=== PATIENT | female | born 1965 | race Caucasian/White ===

== ENCOUNTER 2025-01-28 19:12 | Emergency (ER) | payer OTHER, SELFPAY ==
[2025-01-28 19:15] VITALS: BP 155/69
[2025-01-28 22:16] VITALS: BP 153/54
[2025-01-28 22:17] VITALS: BMI 28.3
[2025-01-28 23:00] VITALS: BP 129/72
--- NOTE | 2025-01-28 23:50 | ED.GENMED ---
History of Present Illness
General
Chief Complaint: Musculo-Skeletal Complaint
Source: patient
Time Seen by Provider: 01/28/25 23:35
History of Present Illness
History of Present Illness:
59-year-old female was walking her dog, stepped on uneven terrain, and fell backwards onto her bottom. She did not hit her head. When she is try to get up she noticed that she had pain in the left wrist. She denies pain elsewhere. She denies
headache, head strike, loss of consciousness, new neck pain, numbness, tingling, focal weakness, chest pain, shortness of breath, abdominal pain, nausea, vomiting, or other complaints.
Past History
Past History
ED Past Medical History: GERD and IDDM
ED Past Surgical History:
Social History
Tobacco: Non-smoker
Alcohol: Occasional
Drug: None
Personal: Single
Living: with family
Employment: Employed
Family History
Family History: Diabetes
Phy Exam
Physical Exam
Physical Exam:
GENERAL: Alert , in no apparent distress
EYE: pupils equal and reactive
NECK: Supple, no significant adenopathy, no midline tenderness.
ENT: o/p clr, mmm, no signs of head or facial injury.
CARDIAC: Regular rate and rhythm .
LUNGS: Clear breath sounds bilaterally, no acute respiratory distress, no wheezes/rales/rhonchi
ABDOMEN: Soft, without focal tenderness, no r/g, no cvat
NEUROLOGICAL: Alert and oriented, no focal neuro deficits
SKIN: Warm and dry, skin intact.
MUSCULOSKELETAL: Mild tenderness to palpation and edema noted dorsal aspect of left wrist, 2+ radial ulnar pulses, no proximal forearm/elbow/humerus pain. Range of motion limited at left wrist due to pain, otherwise preserved range of motion of
extremities throughout, well perfused.
PSYCH: Normal and appropriate interaction.
Course
Orders/Labs/Results
Orders:
Orders
01/28/25 19:13
Wrist, Left 3 Views CR [CR Wrist - Left Min 3 Views] Urgent
Comment:
Reason For Exam: injury
01/28/25 23:55
Acetaminophen with Codeine [Tylenol #3] 1 tablet PO NOW STA
Ibuprofen [Motrin] 400 mg PO NOW STA
Vital Signs
Initial and Last Documented VS:
Initial Vital Signs
Temp Pulse Resp BP Pulse Ox
98.2 F 96 16 155/69 99
01/28/25 19:15 01/28/25 19:15 01/28/25 19:15 01/28/25 19:15 01/28/25 19:15
Last Documented Vital Signs
Temp Pulse Resp BP Pulse Ox
98.2 F 96 16 129/72 99
01/28/25 19:15 01/28/25 19:15 01/28/25 19:15 01/28/25 23:00 01/28/25 23:45
*Critical Care Note
Total Time (30-74mins, 75-104mins- exclusive of procedures): Not Applicable
Update Note
Update Note:
Patient presents to the Emergency Department with
Number and Complexity of Problems Addressed at the Encounter
� Chronic conditions affecting care:
� Acute Exacerbation and/or Progression of Chronic Illness:
� Differential Diagnosis includes:
Amount and/or Complexity of Data to be Reviewed and Analyzed
� I performed an independent evaluation of and my interpretation is:
EKG:
CT:
Xrays:Comminuted mildly displaced intra-articular left radial metaphyseal fracture.
Mild displaced acute fracture of the ulnar solid process.
Laboratory Studies:
Other:
� Review of other/old records reveals:
� Clinical information was obtained by an independent historian: Son who is bedside
� Prescriptions/Medications Considered but not given:
� Further testing considered but not performed:
Risk of Complications and/or Morbidity or Mortality of Patient Management
� Social determinants of health affecting care:
� Discussion with other providers (PCP, Hospitalists, Consultants, etc): Patient will be provided with pain control and precautions regarding narcotic use including constipation, confusion, nausea vomiting, etc. She will be
placed in a sugar-tong splint and instructions for close Ortho follow-up.
� Escalation of care including admission/observation vs risk of discharge considered:
ED Attending Note
-
Portions of this chart may have been created with voice recognition software.� Occasional wrong word or��sound alike� substitutions may have occurred due to the inherent limitations of voice recognition software.
Discharge Plan
Departure
Patient Disposition: Home (Routine Discharge)
Date of Disposition: 01/28/25
Time of Disposition: 23:52
Patient with high blood pressure during this ER visit?: Yes
Condition: Good
Discharge Problem:
Fracture of wrist
Instructions: Cast Care, BLOOD PRESSURE, Wrist Fracture
Prescriptions:
New
acetaminophen-codeine 300-15 mg tablet
1 tab PO BID PRN (Reason: Pain) Qty: 7 0RF
No Action
insulin aspart U-100 [Novolog FlexPen U-100 Insulin] 300 UNITS/3 ML insulin pen
8 units SC DAILY@1730 0RF
Patient Comments:
01/23/2021: Depends on how large of a meal pt eats, sometimes will take 10units
insulin aspart U-100 [Novolog FlexPen U-100 Insulin] 300 UNITS/3 ML insulin pen
10 units SC DAILY@0800,1130 0RF
insulin detemir U-100 [Levemir U-100 Insulin] 1,000 UNITS/10 ML solution
26 units SC HS 0RF
tramadol 50 MG tablet
50 mg PO HS PRN (Reason: mild-mod pain) Qty: 30 0RF
cefazolin 2 GRAMS/10 ML recon soln
1 grams IV Q8H Qty: 0 0RF
Patient Comments:
End date 01/25/21
Rx Instructions:
through 02/22/21.
Referrals:
Ilya Burgess MD [Active] - Follow up in 2-3 days
Activity Restrictions/Additional Instructions:
IF YOU DEVELOP INCREASING NEW OR PERSISTENT PAIN, NUMBNESS, INCREASING SWELLING, OR OTHER WORRISOME SIGNS, PLEASE RETURN TO THE ER IMMEDIATELY.
Interventions
Interventions:
*Risk Screen - Suicide Last Done: 01/28/25 19:15
*General Assessment Last Done: 01/28/25 19:15
*Neglect/Abuse Screening Last Done: 01/28/25 19:15
*ED- Fall Risk Assessment Last Done: 01/28/25 22:17
*ED COVID-19 Vaccine History Last Done: 01/28/25 19:15
*Nursing Disposition Last Done: 01/29/25 00:20
ED-Musculoskeletal Assessment Last Done: 01/28/25 22:17
Discharge Date and Time
Discharge Date/Time: 01/29/25 00:20
Print Language: TRISTANIAN
[2025-01-29] MEDS: MOTRIN 400 MG PO (00:13)
[2025-01-29] MEDS: TYLENOL #3 1 TABLET PO (00:13)
== END 2025-01-29 00:20 | disposition home or self-care (01) ==
LOC: EMR 19:12
PROVIDERS: EMERGENCY PHYSICIAN Emergency Medicine
DX: S52.572A Other intraarticular fracture of lower end of left radius, initial encounter for closed fracture (principal); S52.202A Unspecified fracture of shaft of left ulna, initial encounter for closed fracture; Y93.K1 Activity, walking an animal; E11.9 Type 2 diabetes mellitus without complications; K21.9 Gastro-esophageal reflux disease without esophagitis; K59.00 Constipation, unspecified; Z79.4 Long term (current) use of insulin; Z83.3 Family history of diabetes mellitus
CPT/HCPCS: 99283; 29125; 73110

== ENCOUNTER → 2025-02-03 13:18 | Outpatient (REF) | payer OTHER, SELFPAY ==
[2025-02-03 14:52] LABS: % Basophils 0.5 % (0-2); % Eosinophils 0.7 % (0-6); % Immature Granulocytes 0.2 % (0-0.5); % Lymphocytes 34.6 % (20.5-51.1); % Monocytes 6.6 % (1.7-9.3); % Neutrophils 57.4 % (42.2-75.2); Absolute Lymphocytes 1.9 10^3/uL (1.2-3.4); Absolute Monocytes 0.4 10^3/uL (0.1-0.6); Absolute Neutrophils 3.2 10^3/uL (1.4-6.5); Hematocrit 31.4 % (37.0-47.0); Hemoglobin 10.4 g/dL (12.0-16.0); Mean Corp Hgb Conc. 33.1 g/dL (33.0-37.0); Mean Corpuscular Hgb 30.7 pg (27.0-31.0); Mean Corpuscular Volume 92.6 fL (81.0-99.0); Nucleated Red Blood Cells % 0 %; Platelet Count 205 10^3/uL (130-400); Red Blood Cell Count 3.39 10^6/uL (4.20-5.40); Red Cell Dist. Width 12.5 % (11.5-14.5); White Blood Cell Count 5.6 10^3/uL (4.8-10.8)
[2025-02-03 15:40] LABS: Blood Urea Nitrogen 29 mg/dl (7-17); Calcium 9.9 mg/dl (8.4-10.2); Carbon Dioxide 24 mmol/L (22-30); Chloride 108 mmol/L (98-107); Glucose 100 mg/dl (70-99); Potassium 4.7 mmol/L (3.5-5.1); Sodium 140 mmol/L (135-145); eGFR > 60.00
== END ==
LOC: RCS 13:18
PROVIDERS: ATTENDING PHYSICIAN Orthopaedic Surgery
DX: Z01.818 Encounter for other preprocedural examination (principal)
CPT/HCPCS: 36415; 80048; 85025; 93005